=== PATIENT | male | born 1970 | race Caucasian/White ===

== ENCOUNTER 2017-02-10 00:37 | Emergency (ER) | payer OTHER | END 2017-02-10 03:17 | disposition home or self-care (01) | LOC: ER 00:37 | DX: S16.1XXA Strain of muscle, fascia and tendon at neck level, initial encounter (principal); S66.012A Strain of long flexor muscle, fascia and tendon of left thumb at wrist and hand level, initial encounter; V49.60XA Unspecified car occupant injured in collision with unspecified motor vehicles in traffic accident, initial encounter ==